=== PATIENT | female | born 1975 | race Caucasian/White ===

== ENCOUNTER 2016-11-16 16:28 | Inpatient (IN) | payer OTHER ==
[~2016-11-16] VITALS: Ht 175.3 cm; Wt 92.9 kg
[2016-11-16 18:38] VITALS: BP 103/67; PULSE 60; RESP 18; O2SAT 97
[2016-11-16] MEDS ORDERED: RISP0.5T14 PO (18:52)
[2016-11-16] MEDS ORDERED: CALC500T9 PO (18:52)
[2016-11-16] MEDS ORDERED: SERT20OR PO (18:52)
[2016-11-16] MEDS ORDERED: Alum-Mag Hydrox-Simeth 30 mL Suspension PO PRN (18:55)
[2016-11-16] MEDS ORDERED: Ondansetron 2 mg/mL 2 mL Inj IVPUSH PRN (18:55)
[2016-11-16] MEDS ORDERED: Polyethylene Glycol (PEG) 17 Gm Powder PO PRN (18:55)
[2016-11-16 19:21] VITALS: PULSE 55
[2016-11-16 20:41] VITALS: BP 94/55; PULSE 49; RESP 18; O2SAT 96
--- NOTE | 2016-11-16 20:45 | PCM.HPMED ---
Subjective Date of Service Nov 16, 2016 Primary Provider: Admitting Physician: Americo Jimenez MD Primary Care Physician: Janelle Rascon Attending Physician: Americo Jimenez MD Chief Complaint: Syncope History of Present Illness: Minal Womack is a 41-year-old woman with past medical history of anemia , severe depression presented to the [facility] emergency department today due to a syncopal episode. Patient was scheduled to undergo an elective cholecystectomy for symptomatic cholelithiasis approximately 2 weeks ago but this was canceled due to bradycardia that was noted. This was believed to be secondary to medication side effect, namely Celexa, and this was discontinued at that time but the patient has remained bradycardic since then. Patient has been continuing to take risperidone. Today at work the patient had a syncopal episode. She was talking to a coworker and was sitting outside and suddenly felt dizzy and warm and she walked back into the building. Extremities patient remembers was waking up with her head on her desk. Apparently per report the patient was evaluated by her PCP Dr. Quarles who noted that the patient was anemic with a hemoglobin of 10. He thought that her syncopal episode may be secondary to anemia not bradycardia. Patient was admitted to [facility] for possible upper endoscopy and colonoscopy to rule out a GI source of her anemia. Of note the patient states that she has very heavy periods and has been anemic in the past. She states that she bleeds for 5 days very heavily and has required iron shots in the past. Patient denies any hematemesis, melenic stools or blood per rectum. She also denies any gastric or abdominal discomfort and has no history of peptic ulcer disease and denies any change in her bowel habits. Patient denies any chest pain or shortness of breath. Clear chart review the patient was noted to have some chest "pressure" which prompted a more rapid evaluation by cardiology. Patient was asked today she states that it was not chest pain or pressure but that her "breasts felt a little bit heavy." She was evaluated with a troponin and EKG. Troponin was negative and EKG continue to reveal sinus bradycardia. Patient was transferred to [facility] for further evaluation and management and possible pacemaker placement by cardiology. Review of Systems: A comprehensive review of systems was conducted with the patient and found to be negative except as above in the History of Present Illness. Allergies Coded Allergies: No Known Allergies (Verified Allergy, Unknown, 12/08/04) Uncoded Allergies: NKDA (Allergy, Unknown, 12/08/04) No Known Allergies (Allergy, Unknown, 12/08/04) Home Medications Ascorbic acid Vitamin D3 Celexa 20 mg daily now changed to Sertraline B12 Iron dextran weekly Multivitamin Risperidone 0.25 mg daily PMH Symptomatically cholelithiasis Bradycardia Severe depression Surgical History Laparoscopic appendectomy and right hemicolectomy secondary to ruptured appendicitis in February 2016 which was, located by subcutaneous abscess which required drainage Bariatric "mini" gastric bypass in November 2015 Family History Mother 75 years old and is in good health. Father is 78 years old and was recently diagnosed with new onset of diabetes. She has 3 brothers and 2 history of sore alive and well. She denies any family history of cardiac problems. Social History Hx Alcohol Use: Yes (socially) Hx Substance Use: No Hx Tobacco Use: No Exam Vital Signs Vital Sign - Last Date Time Temp Pulse Resp B/P Pulse Ox O2 Delivery O2 Flow Rate FiO2 11/16/16 18:38 36.9 60 18 103/67 97 Room Air Exam General: No acute distress, well-developed, well-nourished, appropriately interactive HEENT: Normocephalic, atraumatic. External ears without defect. Pupils equal, round, and reactive to light and accommodation. Anicteric sclerae, moist conjunctivae, and no lid lag. Oropharynx free of erythema and cobble stoning with moist mucosa. Neck: Supple with full range of motion. No jugular venous distension. No bruits. No lymphadenopathy or thyromegaly. Cardiovascular: Regular rate and rhythm with soft systolic murmur. Pulmonary: Clear to auscultation bilaterally with no crackles, wheezes, or rhonchi. Normal respiratory effort with no use of accessory muscles. Abdomen: Bowel tones present. Soft, nontender, nondistended. No hepatosplenomegaly or masses appreciated. Extremities: No clubbing, cyanosis, edema, or lymphadenopathy appreciated. Skin: Normal temperature, turgor, and texture; no rash, ulcers, or subcutaneous nodules appreciated. Neurological: Cranial nerves grossly intact. Normal muscle strength, tone, and bulk. Normal speech. No known gait impairment. Psychiatric: Normal mood and affect. Alert and oriented to person, place, and time. Lab and Diagnostics Labs CBC WBC 5.4 Hemoglobin 10.0 Hematocrit 31.7 MCV 78 RDW 17.7 Platelet count 238 BMP Glucose 87 D18 Creatinine 0.7 Sodium 143 Potassium 3.9 Chloride 109 Carbon dioxide 27 Magnesium 1.8 Calcium 8.2 Troponin less than 0.05 12-lead ECG Sinus bradycardia, normal axis, no ST changes Assessment & Plan Minal Womack is a 41-year-old woman with past medical history of anemia , severe depression presented to the [facility] emergency department today due to a syncopal episode. Patient was scheduled to undergo an elective cholecystectomy for symptomatic cholelithiasis approximately 2 weeks ago but this was canceled due to bradycardia that was noted. Sinus bradycardia, present on admission, active -Etiology unclear. May be secondary to Celexa however patient stopped taking it 2 weeks ago as one would expect the medication to washed out by now. May be due to rispiradone. May be secondary to SA node dysfunction. Doubt ischemic etiology. -Telemetry monitoring -Cardiology consulted, appreciate time expertise. -We will place patient nothing by mouth after midnight for the possibility of pacemaker. -Patient's heart rate is currently in the 50s to 70s. No indication for atropine at this time. Acute on chronic anemia, present on admission, active -Patient reports a history of anemia for many years and reports heavy menstrual bleeding and has had a gastric bypass and does not appear to be taking her vitamins and supplements. -Although a GI source may be possible in patients such as this the more likely blood loss is secondary to heavy menstrual bleeding. -We will hold off on consulting gastroenterology until the patient's bradycardia is assessed by cardiology. -We will continue to monitor patient's H&H -Iron studies Severe depression -We will hold patient's risperidone and Celexa at this time given the possible contribution to bradycardia. -Continue sertraline. CODE STATUS: Full code Patient is admitted under inpatient status with expected length of stay greater than 2 midnights due to severity of presenting symptoms, risk of adverse event, and complexity of treatment plan. Attending Statement The patient was seen and examined together with Dr. Lou on 11/16 and I agree with the history, exam and plan as outlined in the note above. Michela Lou DO Nov 16, 2016 20:18 Philippe Loya MD Nov 16, 2016 21:59
[2016-11-17] VITALS (10 sets, daily range): BP systolic 86–114; BP diastolic 40–76; PULSE 40–63; RESP 14–20; O2SAT 96–98
[2016-11-17 06:29] LABS: TROPONIN T 0.01 ug/L (0.0-0.011)
[2016-11-17] MEDS ORDERED: Sertraline 20 mg/mL Liq PO SCH (08:30)
--- NOTE | 2016-11-17 10:37 | PCM.PNMED ---
Subjective Date of Service Nov 17, 2016 Subjective pt was hypotensive and bradycardic, noted milly to mid30s, BP 86/50, pt denied GEORGE, dizziness, chest pain, SOB pt was worried if it was related "prolonged QT" pt denied any cardiac dz, workups in the past, drug overdose Exam Vital Signs Vital Sign - Last Date Time Temp Pulse Resp B/P Pulse Ox O2 Delivery O2 Flow Rate FiO2 11/17/16 08:07 36.8 43 14 86/50 97 Room Air Intake and Output 11/16/16 11/16/16 11/17/16 Cumulative From/Thru 15:00 23:00 07:00 11/16/16 19:42 - 11/17/16 06:34 Intake Total 400 ml 400 ml Output Total 400 ml 400 ml Balance 0 ml 0 ml Intake Oral 400 ml 400 ml Output Urine/Stool Mix 400 ml 400 ml Exam NAD laying down on bed MMM, no JVD regular milly, nl s1 s 2 no mrg CTAB no W,C S,ND,NT,BS+ warm, no edema IVs and Medications Medications Reviewed: Medications were reviewed in detail Lab and Diagnostics Result Diagram: 11/17/16 0535 12-lead ECG Sinus bradycardia, normal axis, no ST changes Assessment & Plan Minal Otilioalejo is a 41-year-old woman with past medical history of anemia , severe depression presented to the [facility] emergency department today due to a syncopal episode. Patient was scheduled to undergo an elective cholecystectomy for symptomatic cholelithiasis approximately 2 weeks ago but this was canceled due to bradycardia that was noted. acute, active symptomatic bradycardia, HR down to mid30s also hypotensive, POA, unclear etiology, possible SSRI/anti-psychotic induced, no s/s of ACS, no prior hx of cardiac dz. probable SSS. serial EKG showed sinus bradycardia, -appreciate cardiology input today, possible PPM insertion, transvenous pacing, -continue telemetry, if symptomatic with hypotension, give atropine 0.5mg iv STAT -will get Utox chronic, stable Acute on chronic anemia, present on admission, active, likely related to heavy menstural blood, unlikely contributing to current presentation, get baseline cbc , iron study, possibly start iron supplement Severe depression, held risperidone and Zoloft at this time given the possible contribution to bradycardia CODE STATUS: Full code dispo: pending based on cardiology eval Time spent 35min Estuardo Gonzalez MD Nov 17, 2016 09:12
--- NOTE | 2016-11-17 10:39 | DRSVH ---
[facility] [address] [place] [address] Echocardiogram Report Name: GIOVANA BARONE MStudy Date: 2016 Height: 69 in Hospital Exam Location: [facility] Weight: 205 lb Gender: Female BSA: 2.1 m2 : 1975 Age: 41 yrs BP: 105/63 mmHg Reason For Study: Sinus Bradycardia Ordering Physician: HOSPITALIST [facility] Performed By: Wendie Jorge Referring Physician: [facility] Interpretation Summary The left ventricle is borderline dilated. The ejection fraction is estimated to be 55-60%. There is no significant valvular heart disease. Procedure: A two-dimensional transthoracic echocardiogram with color flow and Doppler was performed. The study quality was technically adequate. There is no prior echocardiogram noted for this patient. The patient was in sinus bradycardia with heart rates between 38-44 bpm during the exam. Left Ventricle: The left ventricle is borderline dilated. Left ventricular wall thickness is normal. The ejection fraction is estimated to be 55-60%. Left ventricular wall motion is normal. Assessment of diastolic parameters indicates normal left ventricular diastolic function and normal filling pressures. Right Ventricle: The right ventricle is normal in size, thickness and function. The right ventricular systolic function is normal. Atria: Borderline left atrial enlargement. The right atrium is mildly dilated. The interatrial septum is intact with no evidence for an atrial septal defect. Mitral Valve: The mitral valve leaflets appear borderline thickened, but open well. There is trace mitral regurgitation. Aortic Valve: The aortic valve is trileaflet. No aortic regurgitation is present. Tricuspid Valve: The tricuspid valve leaflets are thin and pliable. There is trace tricuspid regurgitation. The right ventricular systolic pressure is estimated at 24 mmHg assuming a right atrial pressure of 8 mm Hg. Pulmonic Valve: The pulmonic valve is normal in structure and function. There is mild pulmonic regurgitation. Great Vessels: The aortic root is normal size. The ascending aorta is normal in size. The IVC is dilated (diameter is greater than 2.1 cm) yet it collapses greater than 50% with a sniff. This suggests a right atrial pressure of 8 mm Hg. Pericardium/ Pleura There is no pericardial effusion. There is no pleural effusion. MMode/2D Measurements & Calculations LVIDd: 5.8 cm RA long axis LVOT diam LVIDs: 4.0 cm LA A2 area: 21.9 cm FS: 30.7 % LA A4 area: 20.0 cm RA area Ao root diam EPSS: 1.0 cm LA length (vol): 5.1 cm IVSd: 0.84 cm LA vol: 72.6 ml : 22.9 cm asc Aorta LVPWd: 0.74 cm LA vol index RA vol: 78.4 mlDiam: 3.2 cm RA : 37.6 mm2 IVC diam: 2.3 cm LV flynn. diameter/BSA LV sys. diameter/BSA (cm/m^2): 2.8 (cm/m^2): 1.9 Doppler Measurements & Calculations Ao V2 max: 134.5 cm/sec MV E max hari MV E/A: 2.2 TR max hari Ao max P.2 mmHg : 110.5 cm/sec : 201.0 cm/sec Ao mean P.1 mmHg MV A max hari TR max PG LVOT Max Hari : 51.2 cm/sec : 16.2 mmHg : 115.3 cm/sec PA V2 max : 69.0 cm/sec SKINNY(I,D): 2.7 cm PA mean PG sev ratio: 0.79 : 1.1 mmHg MV dec time: 0.19 sec Ao V2 mean LV V1 max PG PA V2 mean : 96.0 cm/sec : 51.1 cm/sec Ao V2 VTI: 34.2 cm LV V1 VTI PA pr(Accel) : 27.2 cm : -0.41 mmHg SKINNY(V,D): 3.0 cm2 SKINNY indexed to [facility] (cm^2/m^2): 1.3 Electronically signed by: Eric Gaitan on Reading Physician:11/17/2016 10:38 AM
[2016-11-17] MEDS ORDERED: Atropine 1 mg/10 mL (Code) Syringe IVPUSH PRN (10:45)
[2016-11-17 10:47] LABS: BASOPHILS % (AUTO) 0.5 % (0-3); EOSINOPHILS % (AUTO) 1.8 % (0-5); MONOCYTES % (AUTO) 7.3 % (4-12); Mean Corpuscular Hemoglobin 24.1 pg (27.0-35.0); Mean Corpuscular Volume 78.7 fL (81-100); NEUTROPHILS % (AUTO) 50.6 % (40-74); Platelet Count 235 bil/L (150-400)
[2016-11-17 11:09] LABS: Unsaturated Iron Binding 266.9 ug/dL
[2016-11-17] MEDS ORDERED: 0.9% Sodium Chloride 500 ML IV ONE (13:20)
--- NOTE | 2016-11-17 14:44 | CONS ---
[address] [address] CONSULTATION REPORT PATIENT: GIOVANA BARONE : 1975 MR#: [id number] ADMIT: 11/16/2016 JOB ID: [id number] DATE OF SERVICE: 11/17/2016 CARDIOLOGY CONSULTATION: CHIEF COMPLAINT: Dizziness. HISTORY OF PRESENT ILLNESS: The patient is a 41-year-old woman with history of stage III obesity, status post laparoscopic bariatric surgery performed in [place] in November 2016, as well as history of depression, on risperidone and Celexa for the past four years. In the past few months she noted feeling more fatigued and filled. A month ago she said she developed severe fatigue. She presented for a cholecystectomy about a month ago and was found to have sinus bradycardia and prolonged QT interval. Her cholecystectomy was canceled. She was evaluated by primary care provider, and he was concerned actually about her anemia. Her hematocrit was about 30%. Of note, she is still actively having menstrual cycles and does not have any colon cancer in family history, and she does not have any gastrointestinal bleeding. So, the patient was scheduled for endoscopy at [facility] but when she reported to be evaluated for these procedures she suffered a syncopal episode. Her heart rate so far during echocardiogram performed today fluctuated between 38 up to 45 beats per minute. Cardiology is consulted to assist with management. REVIEW OF SYSTEMS: Significant for fatigue, constipation and weakness. She did have one episode of syncope as outlined above. No family history of tachybrady syndrome. PAST MEDICAL HISTORY: 1. Depression she suffered most of her life. She takes a combination of risperidone 0.25 mg daily and sertraline. Of note, previously, she was taking Celexa 20 mg daily. She says she has never been hospitalized for depression, and has been just treated as an outpatient. 2. Symptomatic cholelithiasis. 3. History of acute appendicitis complicated by ruptured appendix requiring percutaneous drain and healing by secondary intention. This happened in February 2016. 4. Stage 3 obesity, status post gastric bypass surgery performed in [place], and operative report is not available for review. FAMILY HISTORY: Her parents are living. She has five siblings. They are alive and well, with no history of cardiac problems. SOCIAL HISTORY: She uses alcohol socially. She does not smoke. She works very hard, running a gas station. REVIEW OF SYSTEMS: Significant for fatigue, weakness, dizziness, one episode of syncope at work. Otherwise, 10-point review of systems is negative. PHYSICAL EXAMINATION: Vital signs: Temperature 36.9, blood pressure 103/67, pulse right now is 45 beats per minute. Well-nourished woman in no apparent distress. Appears tired. Eyes: No scleral icterus. Heart: Normal S1, S2. No murmurs. Neck: Supple. No lymphadenopathy. No carotid bruits. Lungs: Clear to auscultation bilaterally. Abdomen is soft with positive bowel sounds. No organomegaly. Extremities: Warm, well perfused. No clubbing, cyanosis, or edema. Skin: No rashes or lesions. LABORATORIES: Reviewed. TSH and free T4 ordered. Morning cortisol is ordered and pending. Renin level is pending. Hematocrit is 32%, MCV is small at 79 femtoliters. Creatinine is 0.6, potassium 3.6. Ferritin is 5. Transaminases are normal. Troponin is negative. Albumin is 3.3. There is no recent imaging available for review. Echocardiogram showed preserved LV systolic function. No valvular abnormalities but heart rate was 38 up to 44 beats per minute during exam. ASSESSMENT AND PLAN: In summary, this is a 41-year-old woman with symptomatic bradycardia and syncope. At work when she was sitting then blacked out and woke up slummed over her desk. She has no evidence of structural heart disease based on echocardiogram. We will be investigating hypothyroidism, Nikolas disease and adrenal insufficiency as a cause of her syncope. Additionally, we will stop risperidone. Her last dose was on November 15. I understand that 4% of patients on risperidone can have bradycardia. If no reversible cause is identified, I think the patient meets the criteria for a dual-chamber permanent pacemaker implant for symptomatic bradycardia. Thank you very much for the opportunity to evaluate.
[2016-11-18] VITALS (8 sets, daily range): BP systolic 89–107; BP diastolic 40–84; PULSE 46–72; RESP 14–18; O2SAT 95–98
[2016-11-18 03:08] LABS: Free Thyroxine Index 1.5 (1.2-4.9); Thyroxine (T4) 5.3 ug/dL (4.5-12.0)
[2016-11-18 06:09] LABS: BASOPHILS % (AUTO) 0.4 % (0-3); EOSINOPHILS % (AUTO) 2.3 % (0-5); MONOCYTES % (AUTO) 6.6 % (4-12); Mean Corpuscular Hemoglobin 24.3 pg (27.0-35.0); Mean Corpuscular Volume 77.6 fL (81-100); NEUTROPHILS % (AUTO) 50.5 % (40-74); Platelet Count 225 bil/L (150-400)
[2016-11-18 06:34] LABS: Magnesium 1.6 mg/dL (1.6-2.6)
[2016-11-18] MEDS: Ascorbic Acid 500 mg Tablet PO SCH ×2 (13:53→20:50)
--- NOTE | 2016-11-18 16:18 | PCM.PNMED ---
Subjective Date of Service Nov 18, 2016 Subjective Patient denies any current symptoms of feeling lightheaded. There was an episode when she was out walking in the [place] however and I did feel somewhat shaky and diaphoretic. But that resolved after sitting down. Patient is currently off of her Zoloft and Risperdal. Exam Vital Signs Vital Sign - Last Date Time Temp Pulse Resp B/P Pulse Ox O2 Delivery O2 Flow Rate FiO2 11/18/16 12:39 36.8 50 16 98/53 97 11/18/16 04:42 Room Air Intake and Output 11/17/16 11/17/16 11/18/16 Cumulative From/Thru 15:00 23:00 07:00 11/16/16 19:42 - 11/18/16 04:45 Intake Total 400 ml 250 ml 1050 ml Output Total 875 ml 500 ml 1775 ml Balance -475 ml -250 ml -725 ml Intake Oral 400 ml 250 ml 1050 ml Output Urine Total 875 ml 875 ml Urine/Stool Mix 500 ml 900 ml # Bowel Movements 1 1 Exam Constitutional: Middle-aged female in no acute distress Head: Normocephalic atraumatic Chest: Clear to auscultation Cor: Regular rate and rhythm S1-S2 without murmur Abdomen: Soft nontender bowel sounds present Extremities: No pedal edema Neuro: Alert and oriented 3, motor strength is intact bilaterally Psych: Mood and affect are appropriate IVs and Medications Medications Reviewed: Medications were reviewed in detail Lab and Diagnostics Laboratory Tests 72 Hours Test 11/17/16 05:35 11/18/16 05:35 White Blood Count 4.4th/mm3 (3.8-10.1) 4.7th/mm3 (3.8-10.1) Red Blood Count 4.03mil/mm3 (3.90-5.20) 4.07mil/mm3 (3.90-5.20) Hemoglobin 9.7g/dL (12.0-15.6) 9.9g/dL (12.0-15.6) Hematocrit 31.7% (35.0-46.0) 31.6% (35.0-46.0) Mean Corpuscular Volume 78.7fL (81-100) 77.6fL (81-100) Mean Corpuscular Hemoglobin 24.1pg (27.0-35.0) 24.3pg (27.0-35.0) Mean Corpuscular Hemoglobin Concent 30.6% (32.0-37.0) 31.3% (32.0-37.0) Red Cell Distribution Width 16.9% (12.3-15.4) 16.7% (12.3-15.4) Platelet Count 235bil/L (150-400) 225bil/L (150-400) Neutrophils (%) (Auto) 50.6% (40-74) 50.5% (40-74) Lymphocytes (%) (Auto) 39.8% (14-46) 40.2% (14-46) Monocytes (%) (Auto) 7.3% (4-12) 6.6% (4-12) Eosinophils (%) (Auto) 1.8% (0-5) 2.3% (0-5) Basophils (%) (Auto) 0.5% (0-3) 0.4% (0-3) Sodium Level 142mEq/L (134-144) 142mEq/L (134-144) Potassium Level 3.6mEq/L (3.5-5.2) 3.6mEq/L (3.5-5.2) Chloride Level 108mEq/L (97-108) 108mEq/L (97-108) Carbon Dioxide Level 21mmol/L (18-29) 23mmol/L (18-29) Blood Urea Nitrogen 7mg/dL (6-24) 7mg/dL (6-24) Creatinine 0.63mg/dL (0.57-1.00) 0.55mg/dL (0.57-1.00) Estimat Glomerular Filtration Rate 148mL/min (>59) 173mL/min (>59) Glucose Level 84mg/dL (60-99) 83mg/dL (60-99) Calcium Level 8.3mg/dL (8.5-10.1) 8.2mg/dL (8.5-10.1) Iron Level 33ug/dL (35-150) Total Iron Binding Capacity 300ug/dL (250-450) Percent Iron Saturation 11%sat (15-50) Unsaturated Iron Binding 266.9ug/dL Ferritin 5ng/mL (13-150) Total Bilirubin 0.2mg/dL (0.0-1.2) 0.2mg/dL (0.0-1.2) Aspartate Amino Transf (AST/SGOT) 15U/L (0-50) 17U/L (0-50) Alanine Aminotransferase (ALT/SGPT) 12U/L (0-32) 13U/L (0-32) Alkaline Phosphatase 64U/L (25-150) 67U/L (25-150) Troponin T 0.010ug/L (0.0-0.011) Total Protein 5.3g/dL (6.4-8.4) 5.3g/dL (6.4-8.4) Albumin 3.3g/dL (3.4-5.0) 3.2g/dL (3.4-5.0) Thyroid Stimulating Hormone (TSH) 5.250uIU/mL (0.450-4.500) Free Thyroxine Index 1.5 (1.2-4.9) Thyroxine (T4) 5.3ug/dL (4.5-12.0) Triiodothyronine (T3) Uptake 29% (24-39) Cortisol 7.9ug/dL (.) Magnesium Level 1.6mg/dL (1.6-2.6) Result Diagram: 11/18/1653411/18/16534 12-lead ECG Sinus bradycardia, normal axis, no ST changes Cardiac Echo Impressions Echocardiogram Report Name: GIOVANA BARONE MStudy Date: 2016 Height: 69 in Hospital Exam Location: [facility] Weight: 205 lb Gender: Female BSA: 2.1 m2 : 1975 Age: 41 yrs BP: 105/63 mmHg Reason For Study: Sinus Bradycardia Ordering Physician: HOSPITALIST [facility] Performed By: Wendie Jorge Referring Physician: Gopal Bailey Interpretation Summary The left ventricle is borderline dilated. The ejection fraction is estimated to be 55-60%. There is no significant valvular heart disease. Assessment & Plan Giovana Barone is a 41-year-old woman with past medical history of anemia , severe depression presented to the [facility] emergency department today due to a syncopal episode. Patient was scheduled to undergo an elective cholecystectomy for symptomatic cholelithiasis approximately 2 weeks ago but this was canceled due to bradycardia that was noted. acute, active symptomatic bradycardia, HR down to mid30s also hypotensive, POA, unclear etiology, possible SSRI/anti-psychotic induced, no s/s of ACS, no prior hx of cardiac dz. probable SSS. serial EKG showed sinus bradycardia, -appreciate cardiology input today, possible PPM insertion, transvenous pacing, -continue telemetry, if symptomatic with hypotension, give atropine 0.5mg iv STAT -will get Utox chronic, stable Acute on chronic anemia, present on admission, active, likely related to heavy menstural blood, unlikely contributing to current presentation, get baseline cbc , iron study, possibly start iron supplement Today I are supplementation was started and she has been on iron supplements in the past for anemia. Severe depression, held risperidone and Zoloft at this time given the possible contribution to bradycardia CODE STATUS: Full code dispo: pending based on cardiology eval Time spent 30 minutes Antonella Patel MD Nov 18, 2016 16:18
[2016-11-19 00:33] VITALS: BP 93/47; PULSE 55; RESP 16; O2SAT 98
--- NOTE | 2016-11-19 03:12 | PROG NOTE ---
[address] [address] PROGRESS NOTE PATIENT: GIOVANA BARONE : 1975 MR#: [id number] ADMIT: 11/16/2016 JOB ID: [id number] DATE: 11/18/2016 CHIEF COMPLAINT: Dizziness. SUBJECTIVE: Overnight, patient had no dizziness and no syncope. OBJECTIVE: Vital signs: Temperature 36.7, pulse anywhere from 46 up to 85 beats per minute while ambulating, satting 95% to 98% on room air. Well-nourished. No apparent distress. Eyes: No scleral icterus. Heart: Normal S1, S2. No murmurs. Lungs: Clear to auscultation bilaterally. Abdomen: Soft, positive bowel sounds. No hepatosplenomegaly. Extremities: Warm, well perfused. No clubbing, cyanosis, or edema. Skin: No rashes or lesions. LABORATORIES: Reviewed. She is anemic, hematocrit 32%. White count, platelet counts are normal. Creatinine 0.5. Transaminases are normal. Albumin is a little low. TSH is mildly elevated at 5.2, but free T4 and T3 uptake are normal. Morning cortisol is 7.9, which is normal. There is no evidence of adrenal insufficiency. Renin and aldosterone are still pending. I ambulated the patient up and down the [place] and heart rate goes up to 85 beats per minute during activity. The patient had no dizziness or lightheadedness. ASSESSMENT AND PLAN: This is a 41-year-old woman with sinus bradycardia and syncope. The good news is that her heart rate seems to respond activity and rises appropriately. Since her antipsychotic, risperidone, was discontinued her heart rate is better. I recommend for her to undergo graded exercise stress test tomorrow for evaluation of sinus node dysfunction, and if that goes well she can be safely discharged home into the care of her primary care physician. However, if she has sinus node dysfunction, would benefit from dual-chamber permanent pacemaker implant. Thank you very much for the opportunity to evaluate her.
[2016-11-19 05:17] VITALS: BP 93/39; PULSE 53; RESP 14; O2SAT 96
[2016-11-19 08:00] VITALS: PULSE 56
[2016-11-19] MEDS: Ascorbic Acid 500 mg Tablet PO SCH (09:08)
[2016-11-19 09:09] VITALS: BP 94/47; PULSE 51; RESP 16; O2SAT 95
--- NOTE | 2016-11-19 14:05 | PCM.PNMED ---
Subjective Date of Service Nov 19, 2016 Subjective Patient reports no events overnight. She will be getting a exercise stress test today Exam Vital Signs Vital Sign - Last Date Time Temp Pulse Resp B/P Pulse Ox O2 Delivery O2 Flow Rate FiO2 11/19/16 09:09 36.5 51 16 94/47 95 Room Air Intake and Output 11/18/16 11/18/16 11/19/16 Cumulative From/Thru 15:00 23:00 07:00 11/16/16 19:42 - 11/19/16 06:55 Intake Total 355 ml 480 ml 1885 ml Output Total 1775 ml Balance 355 ml 480 ml 110 ml Intake Oral 355 ml 480 ml 1885 ml Output Urine Total 875 ml Urine/Stool Mix 900 ml # Voids 3 3 6 # Bowel Movements 1 2 Exam Constitutional: Middle-aged female in no acute distress Head: Normocephalic atraumatic Chest: Clear to auscultation Cor: Regular rate and rhythm S1-S2 without murmur Abdomen: Soft nontender bowel sounds present Extremities: No pedal edema Neuro: Alert and oriented 3, motor strength is intact bilaterally Lab and Diagnostics Result Diagram: 11/18/16 0535 11/18/16 0535 12-lead ECG Sinus bradycardia, normal axis, no ST changes Cardiac Echo Impressions Echocardiogram Report Name: GIOVANA BARONE MStudy Date: 2016 Height: 69 in Hospital Exam Location: [facility] Weight: 205 lb Gender: Female BSA: 2.1 m2 : 1975 Age: 41 yrs BP: 105/63 mmHg Reason For Study: Sinus Bradycardia Ordering Physician: [facility]OSPITALIST [facility] Performed By: Wendie Jorge Referring Physician: Gopal Bailey Interpretation Summary The left ventricle is borderline dilated. The ejection fraction is estimated to be 55-60%. There is no significant valvular heart disease. Assessment & Plan Giovana Barone is a 41-year-old woman with past medical history of anemia , severe depression presented to the [facility] emergency department today due to a syncopal episode. Patient was scheduled to undergo an elective cholecystectomy for symptomatic cholelithiasis approximately 2 weeks ago but this was canceled due to bradycardia that was noted. acute, active symptomatic bradycardia, HR down to mid30s also hypotensive, POA, unclear etiology, possible SSRI/anti-psychotic induced, no s/s of ACS, no prior hx of cardiac dz. probable SSS. serial EKG showed sinus bradycardia, -appreciate cardiology input -As per cardiology will get a stress treadmill test today to see if there is any sinus node dysfunction during exercise chronic, stable Acute on chronic anemia, present on admission, active, likely related to heavy menstural blood, unlikely contributing to current presentation, get baseline cbc , iron study, possibly start iron supplement Today I are supplementation was started and she has been on iron supplements in the past for anemia. Severe depression, held risperidone and Zoloft at this time given the possible contribution to bradycardia CODE STATUS: Full code dispo: pending based on cardiology eval Time spent 30 minutes Antonella Patel MD Nov 19, 2016 14:05
--- NOTE | 2016-11-19 14:54 | PCM.DIMED ---
Discharge Instructions Date of Service Nov 19, 2016 Dates of Hospitalization Nov 16, 2016 at 18:34 Discharge Diagnosis Discharge Diagnosis Sinus bradycardia which resolved after stopping medications Diet Discharge Diet: No restrictions Activity Discharge Activity: No restrictions Call your provider Call your provider for: Fever or Chills, Shortness of breath, Chest pain, Weakness (unilateral) Patient Instructions Follow-up Provider: Janelle Rascon Follow-up with PCP in: Other (in 3-5 days, sooner if problems) Antonella Patel MD Nov 19, 2016 14:54
--- NOTE | 2016-11-19 14:59 | PCM.DC.MED ---
Discharge Summary Date of Service Nov 19, 2016 Dates of Hospitalization Date of Hospital Admission Nov 16, 2016 at 18:34 Date of Discharge: Nov 19, 2016 Providers: Admitting Physician: Philippe Loya MD Primary Care Physician: Angelito Arce MD Attending Physician: Estuardo Gonzalez MD Diagnosis at Time of Discharge Diagnosis at Time of Discharge Sinus bradycardia which resolved after stopping medications Consultations Cardiology Procedures ECG 12 Lead Sinus bradycardia, normal axis, no ST changes Cardiac Echo Impression Echocardiogram Report Name: GIOVANA BARONE MStudy Date: 2016 Height: 69 in Hospital Exam Location: [facility] Weight: 205 lb Gender: Female BSA: 2.1 m2 : 1975 Age: 41 yrs BP: 105/63 mmHg Reason For Study: Sinus Bradycardia Ordering Physician: [facility]OSPITALIST [facility] Performed By: Wendie Jorge Referring Physician: Gopal Bailey Interpretation Summary The left ventricle is borderline dilated. The ejection fraction is estimated to be 55-60%. There is no significant valvular heart disease. Other Diagnostics Patient had exercise stress test done by Dr. Quintero which showed no chronotropic or other abnormalities. And per Dr. Quintero patient was to be discharged and continue off of Risperdal as we had stopped when she was admitted to the hospital. Brief History Giovana Barone is a 41-year-old woman with past medical history of anemia , severe depression presented to the [facility] emergency department today due to a syncopal episode. Patient was scheduled to undergo an elective cholecystectomy for symptomatic cholelithiasis approximately 2 weeks ago but this was canceled due to bradycardia that was noted. This was believed to be secondary to medication side effect, namely Celexa, and this was discontinued at that time but the patient has remained bradycardic since then. Patient has been continuing to take risperidone. Today at work the patient had a syncopal episode. She was talking to a coworker and was sitting outside and suddenly felt dizzy and warm and she walked back into the building. Extremities patient remembers was waking up with her head on her desk. Apparently per report the patient was evaluated by her PCP Dr. Quarles who noted that the patient was anemic with a hemoglobin of 10. He thought that her syncopal episode may be secondary to anemia not bradycardia. Patient was admitted to [facility] for possible upper endoscopy and colonoscopy to rule out a GI source of her anemia. Of note the patient states that she has very heavy periods and has been anemic in the past. She states that she bleeds for 5 days very heavily and has required iron shots in the past. Patient denies any hematemesis, melenic stools or blood per rectum. She also denies any gastric or abdominal discomfort and has no history of peptic ulcer disease and denies any change in her bowel habits. Patient denies any chest pain or shortness of breath. Clear chart review the patient was noted to have some chest "pressure" which prompted a more rapid evaluation by cardiology. Patient was asked today she states that it was not chest pain or pressure but that her "breasts felt a little bit heavy." She was evaluated with a troponin and EKG. Troponin was negative and EKG continue to reveal sinus bradycardia. Patient was transferred to [facility] for further evaluation and management and possible pacemaker placement by cardiology. Hospital Course Giovana Barone is a 41-year-old woman with past medical history of anemia , severe depression presented to the [facility] emergency department today due to a syncopal episode. Patient was scheduled to undergo an elective cholecystectomy for symptomatic cholelithiasis approximately 2 weeks ago but this was canceled due to bradycardia that was noted. acute, active symptomatic bradycardia, HR down to mid30s also hypotensive, POA, unclear etiology, possible SSRI/anti-psychotic induced, no s/s of ACS, no prior hx of cardiac dz. probable SSS. serial EKG showed sinus bradycardia, -appreciate cardiology input -As per cardiology will get a stress treadmill test today to see if there is any sinus node dysfunction during exercise. This was negative for any abnormalities and per cardiology patient was to be discharged home today. She is to remain off of Risperdal. She is to follow up with her primary care provider prescribing provider for any alteration in medications that she will need given that Risperdal has been stopped. chronic, stable Acute on chronic anemia, present on admission, active, likely related to heavy menstural blood, unlikely contributing to current presentation, get baseline cbc , iron study, possibly start iron supplement Today I are supplementation was started and she has been on iron supplements in the past for anemia. Severe depression, held risperidone and Zoloft at this time given the possible contribution to bradycardia CODE STATUS: Full code dispo: pending based on cardiology eval Exam Vital Signs (Last) Date Time Temp Pulse Resp B/P Pulse Ox O2 Delivery O2 Flow Rate FiO2 11/19/16 09:09 36.5 51 16 94/47 95 Room Air Test 11/17/16 05:35 11/18/16 05:35 Iron Level 33ug/dL (35-150) Total Iron Binding Capacity 300ug/dL (250-450) Percent Iron Saturation 11%sat (15-50) Unsaturated Iron Binding 266.9ug/dL Ferritin 5ng/mL (13-150) Troponin T 0.010ug/L (0.0-0.011) Thyroid Stimulating Hormone (TSH) 5.250uIU/mL (0.450-4.500) Free Thyroxine Index 1.5 (1.2-4.9) Thyroxine (T4) 5.3ug/dL (4.5-12.0) Triiodothyronine (T3) Uptake 29% (24-39) Cortisol 7.9ug/dL (.) White Blood Count 4.7th/mm3 (3.8-10.1) Red Blood Count 4.07mil/mm3 (3.90-5.20) Hemoglobin 9.9g/dL (12.0-15.6) Hematocrit 31.6% (35.0-46.0) Mean Corpuscular Volume 77.6fL (81-100) Mean Corpuscular Hemoglobin 24.3pg (27.0-35.0) Mean Corpuscular Hemoglobin Concent 31.3% (32.0-37.0) Red Cell Distribution Width 16.7% (12.3-15.4) Platelet Count 225bil/L (150-400) Neutrophils (%) (Auto) 50.5% (40-74) Lymphocytes (%) (Auto) 40.2% (14-46) Monocytes (%) (Auto) 6.6% (4-12) Eosinophils (%) (Auto) 2.3% (0-5) Basophils (%) (Auto) 0.4% (0-3) Sodium Level 142mEq/L (134-144) Potassium Level 3.6mEq/L (3.5-5.2) Chloride Level 108mEq/L (97-108) Carbon Dioxide Level 23mmol/L (18-29) Blood Urea Nitrogen 7mg/dL (6-24) Creatinine 0.55mg/dL (0.57-1.00) Estimat Glomerular Filtration Rate 173mL/min (>59) Glucose Level 83mg/dL (60-99) Calcium Level 8.2mg/dL (8.5-10.1) Magnesium Level 1.6mg/dL (1.6-2.6) Total Bilirubin 0.2mg/dL (0.0-1.2) Aspartate Amino Transf (AST/SGOT) 17U/L (0-50) Alanine Aminotransferase (ALT/SGPT) 13U/L (0-32) Alkaline Phosphatase 67U/L (25-150) Total Protein 5.3g/dL (6.4-8.4) Albumin 3.2g/dL (3.4-5.0) Discharge Medications Discharge Medications Sertraline HCl (Zoloft) 20 Mg/1 Ml Oral.conc 50 MG PO DAILY (Reported) As needed Calcium Carbonate (Tums) 500 Mg Tab.chew 500 MG PO PRN PRN PRN heartburn ( Reported) Followup Plan Disposition: Home Discharge Diet: No restrictions Discharge Activity: No restrictions Follow-up Provider: Janelle Rascon Follow-up with PCP in: Other (in 3-5 days, sooner if problems) Time spent Greater than 30 minutes was spent in preparation of discharge with greater than 50% of that time dedicated to patient counseling and coordination of care. copies to: Janelle Rascon Cheryl A MD Nov 19, 2016 14:59
--- NOTE | 2016-11-20 03:32 | PROG NOTE ---
[address] [address] PROGRESS NOTE PATIENT: GIOVANA BARONE : 1975 MR#: [id number] ADMIT: 11/16/2016 JOB ID: [id number] DATE: 11/19/2016 CHIEF COMPLAINT: Syncope. SUBJECTIVE: Overnight, the patient says she has not felt any dizziness. This morning, she underwent reassuring graded exercise stress test with myocardial perfusion imaging with good exercise capacity, no ST-segment changes and robust heart rate and blood pressure response. Heart rate peaked at 171 beats per minute at peak activity. She was on the treadmill for 9 minutes. She had no pauses. Her heart rate improved somewhat after risperidone was held. She has no complaints and desires to go home. OBJECTIVE: Vital signs: Temperature 36.5, blood pressure 93/39 (up to 94/47), pulse 51 (up to 56 beats per minute on the floor). She is satting 95% to 98% on room air. A very pleasant lady in no apparent distress. Eyes: No scleral icterus. Neck: Supple. No lymphadenopathy. No carotid bruits. Heart: Normal S1, S2. No murmurs, rubs or gallops. Lungs are clear anteriorly. Abdomen: Soft. Positive bowel sounds. No hepatosplenomegaly. Extremities: Warm and well perfused. No clubbing, cyanosis or edema. Skin: No rashes or lesions. LABORATORY DATA: Labs are reviewed. She is anemic, which is stable. Hematocrit is 32%, MCV is low at 78 fl. Otherwise, CBC is normal. Creatinine is 0.6, magnesium on admission was 1.6, potassium 3.6. Transaminases are normal. TSH is mildly elevated with a normal free T4 and T3 uptake consistent with subclinical hypothyroidism. Morning cortisol is normal, so no evidence of adrenal insufficiency. Renin and aldosterone are pending. ASSESSMENT AND PLAN: In summary, this is a 41-year-old woman. She is doing well. She was admitted with symptomatic bradycardia and syncope. Her heart rate improved somewhat after risperidone was held. No reversible cause was identified. Risperidone was held and heart rate improved somewhat. Therefore, she is deemed to be not a good candidate for dual-chamber permanent pacemaker. She is discharged home in stable condition with close outpatient followup. Thank you very much for the opportunity to participate in this patient's care.
[2016-11-21 14:09] LABS: Renin Activity 0.188 ng/mL/hr (0.167-5.380)
== END 2016-11-19 15:20 | disposition home or self-care (01) | DRG 310 ==
LOC: MPC 18:34
PROVIDERS: ADMIT Hospitalist; ATTEND Hospitalist
DX: R00.1 Bradycardia, unspecified (principal); E02 Subclinical iodine-deficiency hypothyroidism; R55 Syncope and collapse; D64.9 Anemia, unspecified; F32.9 Major depressive disorder, single episode, unspecified; T43.595A Adverse effect of other antipsychotics and neuroleptics, initial encounter